=== PATIENT | male | born 2000 | race Two or more races ===

== ENCOUNTER 2023-08-24 09:28 | Outpatient (AMB) | payer OTHER, SELFPAY ==
--- NOTE | 2023-08-24 09:38 | A.OFFVIS_ITS ---
Intake Intake Visit Reasons: testicular pain Intake Note: NEW Patient presents today to established treatment for Testicular Pain: Meds- None Allergies to Antibiotic- No Known Allergies Blood Thinner- None Photoresist Printer Required: No Accompanied by: Self / Same As Patient Allergies No Known Allergies Allergy (Verified 08/24/23 10:20) HPI HPI Comments History of Present Illness Details Joe is a 23-year-old male who states that he has had left testicular pain on and off for several months he also has had intermittent pain with ejaculation, however he states that when he does deep breathing and relaxing he notices that he does not get the pain as much with ejaculation. He also complains of bilateral groin pain he states after eating he feels pressure in the pelvis area until he has a bowel movement. The patient states he was told h osbaldo had IBS like symptoms, however he has not been diagnosed officially with irritable bowel syndrome. He denies blood in the urine he states that at times he may get some dribbling and have some urinary urgency. He states that he had an ultrasound of the scrotum in July and he was told it was normal. I will have the results faxed to my attention. He states that he was treated with an antibiotic by his primary but his urine came back negative for STDs so he did not complete the course of antibiotics. He is sexually active prefers same-sex relationships. He states his partner is negative for STDs also. Examination urinalysis negative for blood or leukocytes. Testicular exam mild tenderness on palpation of left testicle no scrotal swelling or erythema. I have discussed with the patient importance of timed voiding and pelvic floor relaxation as well as avoiding dietary bladder irritants and hydrating adequately to keep the urine from being too concentrated. I have discussed that if there is retrograde urine into the ejaculatory ducts that can cause irritation as well. Agustin agrees to cut back on caffeine intake and plan is to follow-up in 3 months. May consider pelvic floor PT in the future. [facility] Surgical History Hx of adenoidectomy Hx of tooth extraction Family History Father No problems noted. Mother No problems noted. Social History Substance Use Type: Marijuana Review of Systems Const All systems reviewed & are unremarkable except as noted in HPI and below Reports no additional complaints Eyes Reports no additional complaints ENT Reports no additional complaints Card Denies dyspnea Resp Denies cough and Denies dyspnea GI Reports no additional complaints Musc Reports no additional complaints Skin/Breast Denies rash and Denies unusual bruising Neuro Reports no additional complaints Psych Reports no additional complaints Endo Reports no additional complaints Dion/Lymph Reports no additional complaints Aller/Immun Reports no additional complaints Physical Exam Const General: healthy appearing, no acute distress and well developed Orientation/consciousness: patient oriented x3 HEENT Head: Yes normocephalic and Yes atraumatic Eyes Conjunctivae: conjunctivae normal Neck Neck: Yes normal visual inspection Chest Chest palpation & inspection: normal inspection of the chest Resp Effort & Inspection: normal respiratory effort Cardio Rate: regular rate GI Inspection: Yes normal to inspection Palpation (GI): Soft to palpation Other: Mild left testicular pain Penis: normal penis Scrotum: scrotum normal Skin General skin exam: no rashes or lesions noted Neuro General: patient oriented x3 Extrem General: No pedal edema Psych Appearance: grossly normal Affect: normal affect Results AMB Urinalysis, Automated UA Leukoctes 0 Efrem/uL Last Edit by BEAU Castro on 08/24/23 10:20 UA Nitrite Negative Last Edit by BEAU Castro on 08/24/23 10:20 UA Urobilinogen 0.2 mg/dL Last Edit by BEAU Castro on 08/24/23 10:2 0 UA Protein 15 mg/dL Last Edit by BEAU Castro on 08/24/23 10:20 UA pH 7.0 Last Edit by BEAU Castro on 08/24/23 10:20 UA Blood 0 Mychal/uL Last Edit by BEAU Castro on 08/24/23 10:20 UA Specific [place] 1.015 Last Edit by Salomehenrik Minesh, FELIZA on 08/24/23 10: 20 UA Ketone Negative Last Edit by Salomehenrik Minesh FELIZShanice on 08/24/23 10:20 UA Bilirubin 0 mg/dL Last Edit by Salomehenrik Minesh, RMA on 08/24/23 10:20 UA Glucose 0 mg/dL Last Edit by BEAU Castro on 08/24/23 10:20 Results Reviewed Results Reviewed: Laboratory Last Values Urine pH (Auto) 7.0 08/24/23 10:19 Specific [place] (Auto) 1.015 08/24/23 10:19 Urine Protein (Auto) 15 mg/dL 08/24/23 10:19 Glucose (UA)(Auto) 0 mg/dL 08/24/23 10:19 Urine Ketones (Auto) Negative 08/24/23 10:19 Urine Blood (Auto) 0 Mychal/uL 08/24/23 10:19 Urine Nitrite (Auto) Negative 08/24/23 10:19 Urine Bilirubin (Auto) 0 mg/dL 08/24/23 10:19 Urine Urobilinogen (Auto) 0.2 mg/dL 08/24/23 10:19 Leukocyte Esterase (Auto) 0 Efrem/uL 08/24/23 10:19 Assessment & Plan Assessment & Plan (1) Left testicular pain: Code(s): N50.812 - Left testicular pain (2) Spastic pelvic floor syndrome: Code(s): K59.02 - Outlet dysfunction constipation Plan Behavioral modification Timed voiding Avoid bladder irritants Increase water intake Orders: Orders AMB Urinalysis Automated Today Z13.9 - Encounter for screening, unspecified Patient Instructions: The patient had an opportunity to ask questions regarding treatment plan. All questions were answered. Physical exam results were discussed and reviewed in detail. No major barriers to understanding were identified. The patient expressed understanding and agreement with the above treatment plan. The patient is aware they should contact our office by phone for worsening of their current condition or the appearance of new symptoms. Compliance is encouraged with any medications and followup testing that is ordered. It is a privilege to be allowed the opportunity to participate in the urologic care of your patient. If you have any questions or concerns regarding treatment for the above conditions please do not hesitate to contact me. The office telephone contact is [phone]. This note is constructed in part using voice recognition software. While every effort has been made to ensure accuracy transcribing machine mechanic errors may have been included. Yours sincerely, Vinny Harry MD Coding Level of Care Code New Pt Level 4 (19618) Diagnoses Left testicular pain N50.812 Spastic pelvic floor syndrome K59.02
== END 2023-08-24 10:46 | disposition home or self-care (01) ==
PROVIDERS: PCP Internal Medicine; Visit Provider Urology
DX: N50.812 Left testicular pain (principal); K59.02 Outlet dysfunction constipation; Z13.9 Encounter for screening, unspecified
CPT/HCPCS: 99204

== ENCOUNTER → 2023-08-24 09:28 | Outpatient (BNVA) | payer OTHER, SELFPAY | PROVIDERS: PCP Internal Medicine; Visit Provider Urology | DX: N50.812 Left testicular pain (principal); K59.02 Outlet dysfunction constipation; R10.30 Lower abdominal pain, unspecified | CPT/HCPCS: 81003; 99202 ==